=== PATIENT | male | born 1980 | race Caucasian/White ===

== ENCOUNTER 2017-09-16 12:49 | Emergency (ER) | payer OTHER ==
[2017-09-16 13:02] VITALS: BP 110/77; PULSE 95; RESP 16; TEMP 99; O2SAT 98
--- NOTE | 2017-09-16 13:41 | ED PDOC ---
Arrival/HPI - General Chief Complaint: Lower Extremity Problem/Injury Time Seen by Provider: 09/16/17 13:35 Historian: Patient - History of Present Illness Narrative History of Present Illness (Text): 09/16/17 13:38 This 37 yo male presents to this ED c/o left anterior knee swelling and redness since this morning. 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 Denies trauma, fever, streaking erythema, abscess, weakness, or paresthesias. Time/Duration: Other (see hpi) Context: Home Past Medical History - Provider Review Nursing Documentation Reviewed: Yes - Travel History If Yes, travel location?: [place] - Infectious Disease Hx of Infectious Diseases: None - Psychiatric Hx Substance Use: No - Anesthesia Hx Anesthesia: No Family/Social History - Physician Review Nursing Documentation Reviewed: Yes Family/Social History: Other (noncontributory) Smoking Status: Current Some Days Smoker Hx Alcohol Use: No Hx Substance Use: No Allergies/Home Meds Allergies/Adverse Reactions: Allergies ketofen, pain med from [place] Allergy (Uncoded 09/16/17 13:06) RASH Review of Systems - Review of Systems Constitutional: Normal. absent: Fatigue, Weight Change, Fevers Eyes: Normal ENT: Normal Respiratory: Normal Cardiovascular: Normal Gastrointestinal: Normal Genitourinary Male: Normal Musculoskeletal: Other (left anterior redness, swelling and pain) Skin: Normal Neurological: Normal Endocrine: Normal Hemo/Lymphatic: Normal Psychiatric: Normal Physical Exam Vital Signs Temp Pulse Resp BP Pulse Ox 09/16/17 12:57 99 F 95 H 16 110/77 98 Temperature: Afebrile Blood Pressure: Normal Pulse: Regular Respiratory Rate: Normal Appearance: Positive for: Well-Appearing, Non-Toxic, Comfortable Pain Distress: None Mental Status: Positive for: Alert and Oriented X 3 - Systems Exam Head: Present: Atraumatic, Normocephalic Pupils: Present: PERRL Extroacular Muscles: Present: EOMI Conjunctiva: Present: Normal Mouth: Present: Moist Mucous Membranes Upper Extremity: Present: Normal Inspection, Normal ROM Lower Extremity: Present: NORMAL PULSES, Cyanosis, Normal ROM, Tenderness, Swelling, Erythema, Temperature Abnormalties, Neurovascularly Intact, Capillary Refill < 2 s, Other ((+) left anterior knee erythema, warmth to touch, swollen, and mild tender. It resembles prepatellar bursities). No: Edema, CALF TENDERNESS, Arabella's Sign, Deformity Neurological: Present: GCS=15, CN II-XII Intact, Speech Normal, Motor Func Grossly Intact, Normal Sensory Function, Normal Cerebellar Funct, Gait Normal, Memory Normal Skin: Present: Warm, Dry, Normal Color. No: Rashes Psychiatric: Present: Alert, Oriented x 3, Normal Insight, Normal Concentration Medical Decision Making ED Course and Treatment: 09/16/17 13:42 Re-evaluation. Patient feels better. Discussed results and plan with patient who expresses understanding. All questions answered and there is agreement with the plan to discharge home with instructions. Patient stable for discharge. Return if symptoms persist or worsen. Patient he is allergic to Diclofenac only, but he denies allergies to other NSAIDs, and he has taken Naproxen, or Ibuprofen at home without allergies. I resembles prepatellar bursities, but I will place pt in ABX since he could had abrasion in the past. He is construction electrician. Re-evaluation Time: 13:43 Reassessment Condition: Re-examined, Improved Disposition/Present on Arrival - Present on Arrival Any Indicators Present on Arrival: No History of DVT/PE: No History of Uncontrolled Diabetes: No Urinary Catheter: No History of Decub. Ulcer: No History Surgical Site Infection Following: None - Disposition Have Diagnosis and Disposition been Completed?: Yes Diagnosis: Prepatellar bursitis Disposition: HOME/ ROUTINE Disposition Time: 13:46 Patient Plan: Discharge Patient Problems: Current Active Problems Problem Status Onset Prepatellar bursitis Acute Condition: GOOD Discharge Instructions (ExitCare): Prepatellar Bursitis Additional Instructions: Call private doctor for follow up visit in 1-2 days. Take medication as instructed with food. Keep knee elevated, ice, rest. Return to emergency if redness worsen or fever Prescriptions: Cephalexin [Keflex] 500 mg PO QID #28 capsule Ibuprofen [Motrin] 600 mg PO Q6 PRN #20 tab PRN Reason: Pain, Severe (8-10) Referrals: Hood Cobian MD [Primary Care Provider] - Follow up with primary Forms: [facility] (Slovak), WORK NOTE
== END 2017-09-16 14:01 | disposition home or self-care (01) ==
LOC: ED 12:49
DX: M70.42 Prepatellar bursitis, left knee (principal)